=== PATIENT | female | born 1970 | race Caucasian/White ===

== ENCOUNTER → 2023-11-10 15:14 | Outpatient (REF) | payer OTHER, SELFPAY | LOC: RAD 15:14 | PROVIDERS: ATTENDING PHYSICIAN Nurse Practitioner Primary Care | DX: M25.552 Pain in left hip (principal) | CPT/HCPCS: 73502 ==

== ENCOUNTER → 2023-11-29 08:10 | Outpatient (REF) | payer OTHER, SELFPAY | LOC: HWRAD 08:10 | PROVIDERS: ATTENDING PHYSICIAN Nurse Practitioner Primary Care | DX: R59.1 Generalized enlarged lymph nodes (principal) | CPT/HCPCS: 76536 ==

== ENCOUNTER → 2024-02-01 17:19 | Outpatient (REF) | payer OTHER, SELFPAY | LOC: WDC 17:19 | PROVIDERS: ATTENDING PHYSICIAN Nurse Practitioner Primary Care | DX: Z12.31 Encounter for screening mammogram for malignant neoplasm of breast (principal) | CPT/HCPCS: 77063; 77067 ==

== ENCOUNTER 2025-01-11 06:18 | Day surgery (SDC) | payer OTHER, SELFPAY | END 2025-01-11 09:02 | disposition home or self-care (01) | LOC: GI 06:18 | PROVIDERS: ATTENDING PHYSICIAN Internal Medicine | DX: Z12.11 Encounter for screening for malignant neoplasm of colon (principal); D12.3 Benign neoplasm of transverse colon; D12.4 Benign neoplasm of descending colon; D12.5 Benign neoplasm of sigmoid colon | CPT/HCPCS: 45385; 45380; 88305 ==

== ENCOUNTER → 2025-02-01 15:50 | Outpatient (REF) | payer OTHER, SELFPAY | LOC: WDC 15:50 | PROVIDERS: ATTENDING PHYSICIAN Nurse Practitioner Primary Care | DX: Z12.31 Encounter for screening mammogram for malignant neoplasm of breast (principal) | CPT/HCPCS: 77063; 77067 ==

== ENCOUNTER → 2025-04-22 09:17 | Outpatient (REF) | payer OTHER, SELFPAY | LOC: MRI 3T 09:17 | PROVIDERS: ATTENDING PHYSICIAN Physical Medicine & Rehabilitation; FAMILY PHYSICIAN Nurse Practitioner Primary Care | DX: M54.16 Radiculopathy, lumbar region (principal) | CPT/HCPCS: 72148 ==

== ENCOUNTER 2025-05-22 08:52 | Outpatient (RCR) | payer OTHER, SELFPAY | END 2025-05-22 23:59 | disposition home or self-care (01) | LOC: RPT 08:52 | PROVIDERS: ATTENDING PHYSICIAN Physical Medicine & Rehabilitation; FAMILY PHYSICIAN Nurse Practitioner Primary Care | DX: M54.16 Radiculopathy, lumbar region (principal); M51.26 Other intervertebral disc displacement, lumbar region; Z73.6 Limitation of activities due to disability | CPT/HCPCS: 97110; 97162 ==

== ENCOUNTER 2025-06-18 15:12 | Outpatient (RCR) | payer OTHER, SELFPAY | END 2025-06-18 23:59 | disposition home or self-care (01) | LOC: RPT 15:12 | PROVIDERS: ATTENDING PHYSICIAN Physical Medicine & Rehabilitation; FAMILY PHYSICIAN Nurse Practitioner Primary Care | DX: M54.16 Radiculopathy, lumbar region (principal); M51.26 Other intervertebral disc displacement, lumbar region; Z73.6 Limitation of activities due to disability | CPT/HCPCS: 97010; 97110 ==